=== PATIENT | female | born 1945 | race Caucasian/White ===

== ENCOUNTER → 2019-11-09 | Day surgery (SDC) | payer MEDICARE, OTHER ==
[~2019-11-09] MED LIST: ASPI-630 PO; CEVI30CA5 PO; CRESTOR10 MG PO; GABA-585 PO; IV RINGERS,LACTATED 1000ML 1,000 ML IV SCH; LIDOCAINE 2% PF 5 ML VIAL. ONE; MELO15TA23 PO; METO-239 PO; MIRA50TA PO; PROPOFOL 40 ML IV ONE; TRAM50TA PO
[2019-11-09 14:13] VITALS: BP 123/71
== END | disposition home or self-care (01) ==
LOC: ENDOS 13:05
PROVIDERS: ATTEND Internal Medicine Gastroenterology
DX: R13.10 Dysphagia, unspecified (principal); K22.2 Esophageal obstruction; K21.0 Gastro-esophageal reflux disease with esophagitis; M19.90 Unspecified osteoarthritis, unspecified site; E78.00 Pure hypercholesterolemia, unspecified; K57.30 Diverticulosis of large intestine without perforation or abscess without bleeding; K44.9 Diaphragmatic hernia without obstruction or gangrene; F17.210 Nicotine dependence, cigarettes, uncomplicated; Z85.828 Personal history of other malignant neoplasm of skin; Z83.71 Family history of colonic polyps; Z88.6 Allergy status to analgesic agent; Z82.3 Family history of stroke; Z80.41 Family history of malignant neoplasm of ovary; Z82.49 Family history of ischemic heart disease and other diseases of the circulatory system; Z80.3 Family history of malignant neoplasm of breast; Z80.0 Family history of malignant neoplasm of digestive organs; Z79.82 Long term (current) use of aspirin; Z79.899 Other long term (current) drug therapy; Z90.710 Acquired absence of both cervix and uterus; Z98.890 Other specified postprocedural states
CPT/HCPCS: 43235; 43450; J2001; J2704